=== PATIENT | female | born 1965 | race Caucasian/White ===

== ENCOUNTER 2016-05-13 11:18 | Emergency (ER) | payer MEDICAID ==
[~2016-05-13] VITALS: Ht 157.5 cm; Wt 63.5 kg
[~2016-05-13 11:18] MED LIST: ALBUPOW26 INH; PROMCRY PO; WARF1TAB; [UNRECOGNIZED DRUG - OTHER]
[2016-05-13 12:20] VITALS: BP 123/84
== END 2016-05-13 12:48 | disposition home or self-care (01) ==
LOC: ER 11:18
DX: S93.402A Sprain of unspecified ligament of left ankle, initial encounter (principal); S90.32XA Contusion of left foot, initial encounter; J44.9 Chronic obstructive pulmonary disease, unspecified; K21.9 Gastro-esophageal reflux disease without esophagitis; F17.210 Nicotine dependence, cigarettes, uncomplicated; F12.10 Cannabis abuse, uncomplicated; Z90.89 Acquired absence of other organs; Z98.51 Tubal ligation status; W18.40XA Slipping, tripping and stumbling without falling, unspecified, initial encounter; Y93.89 Activity, other specified; Y99.8 Other external cause status; Y92.009 Unspecified place in unspecified non-institutional (private) residence as the place of occurrence of the external cause
CPT/HCPCS: 73630

== ENCOUNTER 2016-06-30 19:55 | Inpatient (IN) | payer MEDICAID ==
[~2016-06-30] VITALS: Ht 157.5 cm; Wt 60.8 kg
[2016-06-30] MEDS ORDERED: LORazepam 2MG/ML-1ML VIAL IV ONE (21:00)
[2016-06-30] MEDS ORDERED: SODIUM CHLORIDE 0.9% 1,000 ML IV ONE ×2 (21:00)
[2016-06-30] MEDS ORDERED: THIAMINE INJ 100 MG, MULTIPLE VITAMIN 10 ML, FOLIC ACID 1 MG, MAGNESIUM SULF SDV 50% 8 ... IV ONE ×5 (21:00)
[2016-06-30 21:44] LABS: BUN/Creatinine Ratio 13.6; Calcium 7.7 mg/dL (8.5-10.1); Potassium 3.7 mmol/L (3.5-5.1)
[2016-06-30 21:47] LABS: Amylase 57 U/L (25-115)
[2016-06-30 21:49] LABS: Bilirubin, Total 0.4 mg/dL (0.2-1.0); Total Protein 6.3 g/dL (6.4-8.2)
[2016-06-30 22:04] LABS: Hematocrit 35.7 % (36.0-46.0); Mean Corpuscular Hemoglobin 30.8 pg (28.0-32.0); Mean Corpuscular Hgb Conc. 33.5 g/dL (32.0-36.0); Mean Corpuscular Volume 91.8 fL (80.0-100.0); Mean Platelet Volume 8.8 fL (7.4-10.4); Platelet Count (auto) 166 10^3/uL (140-450); Red Cell Distribution Width 14.5 % (11.6-16.0)
[2016-06-30 22:09] LABS: Metamyelocytes % 0; Myelocytes % 0; Promyelocytes % 0; Reactive Lymphocytes 0
[2016-06-30 22:14] LABS: Urine Bilirubin Negative (Negative); Urine Blood Negative /uL (Negative); Urine Color Yellow (Yellow); Urine Glucose Normal (Normal); Urine Ketone Negative (Negative); Urine Nitrite Negative (Negative); Urine RBC <1 /hpf (0 - 4); Urine Sperm PRESENT /hpf (None Seen); Urine Squamous Epithelial Cell FEW /hpf (<5); Urine Urobilinogen Normal (Negative)
[2016-06-30 22:33] LABS: Large Platelets FEW; Ovalocytes FEW; Platelet Estimate Adequa
[2016-07-01] VITALS (8 sets, daily range): BP systolic 114–147; BP diastolic 70–103
[2016-07-01] MEDS ORDERED: PANTOPRAZOLE SODIUM 40 MG/10 ML VIAL IV ONE (00:45)
[2016-07-01] MEDS ORDERED: MORPHINE SULF INJ 2 MG/ML SYRINGE 1ML IV PRN (00:45)
[2016-07-01] MEDS ORDERED: LORazepam 2MG/ML-1ML VIAL IV PRN (00:45)
[2016-07-01] MEDS ORDERED: BACLOFEN 10 MG TAB PO PRN (00:45)
[2016-07-01] MEDS ORDERED: ACETAMINOPHEN 325 MG TAB PO PRN (00:45)
[2016-07-01] MEDS ORDERED: ONDANSETRON HCL 4 MG/2 ML VIAL ONE (01:15)
[2016-07-01] MEDS: HYDROcodone-ACET 5/325MG TAB PO PRN ×5 (02:17→22:14)
[2016-07-01] MEDS: SODIUM CHLORIDE 0.9% 1,000 ML IV SCH ×2 (02:53→13:13)
[2016-07-01] MEDS ORDERED: ENOXAPARIN SOD 40 MG/0.4 ML SYRINGE SC SCH (10:00)
[2016-07-01] MEDS: PANTOPRAZOLE SODIUM 40 MG/10 ML VIAL IV SCH (10:51)
[2016-07-01] MEDS: FOLIC ACID 1 MG TAB PO SCH (10:52)
[2016-07-01] MEDS: THIAMINE HCL 100 MG TAB PO SCH (10:52)
[2016-07-01] MEDS: RIVAROXABAN 10 MG TAB PO SCH (10:56)
[2016-07-01] MEDS: ONDANSETRON HCL 4 MG/2 ML VIAL IV PRN ×2 (17:46→22:14)
[2016-07-01] MEDS: DIAZEPAM 5 MG TAB PO PRN (22:14)
[2016-07-02] MEDS ORDERED: diphenhdrAMINE HCL 25 MG CAP PO ONE (00:30)
[2016-07-02] MEDS: SODIUM CHLORIDE 0.9% 1,000 ML IV SCH (01:43)
[2016-07-02 05:00] VITALS: BP 138/93
[2016-07-02 05:31] LABS: Basophils # (auto) 0 uL; Basophils % (auto) 0.2 % (0.0-2.0); Eosinophils # (auto) 0.2 uL; Eosinophils % (auto) 2.9 % (0.0-7.0); Hematocrit 37.5 % (36.0-46.0); Hemoglobin 12.6 g/dL (12.2-16.2); Lymphocytes # (auto) 1.4 uL; Lymphocytes % (auto) 26.5 % (10.0-50.0); Mean Corpuscular Hemoglobin 30.8 pg (28.0-32.0); Mean Corpuscular Hgb Conc. 33.6 g/dL (32.0-36.0); Mean Corpuscular Volume 91.6 fL (80.0-100.0); Mean Platelet Volume 9.7 fL (7.4-10.4); Monocytes # (auto) 0.2 uL; Monocytes % (auto) 3.1 % (0.0-12.0); Neutrophils # (auto) 3.7 uL; Neutrophils % (auto) 67.3 % (37.0-80.0); Platelet Count (auto) 137 10^3/uL (140-450); Red Cell Distribution Width 14.4 % (11.6-16.0); SUSPECT VIEW TRANSMISSION; White Blood Cell 5.4 10^3/uL (4.4-10.8)
[2016-07-02 06:04] LABS: Albumin 3.5 g/dL (3.4-5.0); BUN/Creatinine Ratio 7.6; Bilirubin, Total 1.2 mg/dL (0.2-1.0); Calcium 8.4 mg/dL (8.5-10.1); Potassium 3.2 mmol/L (3.5-5.1); Total Protein 6.9 g/dL (6.4-8.2)
[2016-07-02 08:00] VITALS: BP 126/73
[2016-07-02 08:51] VITALS: BP 131/93
[2016-07-02] MEDS: RIVAROXABAN 10 MG TAB PO SCH (09:41)
[2016-07-02] MEDS: PANTOPRAZOLE SODIUM 40 MG/10 ML VIAL IV SCH (09:41)
[2016-07-02] MEDS: ONDANSETRON HCL 4 MG/2 ML VIAL IV PRN (09:41)
[2016-07-02] MEDS: FOLIC ACID 1 MG TAB PO SCH (09:41)
[2016-07-02] MEDS: DIAZEPAM 5 MG TAB PO PRN (09:42)
[2016-07-02] MEDS: THIAMINE HCL 100 MG TAB PO SCH (09:42)
[2016-07-02 10:38] VITALS: BP 126/73
== END 2016-07-02 11:25 | disposition home or self-care (01) | DRG 52 ==
LOC: EDBD 19:55 → ER 20:02 → OVERFLOW 20:03 → WEST WING 07-01 01:37
PROVIDERS: ADMIT Internal Medicine; ATTEND Internal Medicine
DX: G92 Toxic encephalopathy (principal); K86.1 Other chronic pancreatitis; J44.9 Chronic obstructive pulmonary disease, unspecified; E86.0 Dehydration; F12.90 Cannabis use, unspecified, uncomplicated; D64.9 Anemia, unspecified; F10.229 Alcohol dependence with intoxication, unspecified; K29.20 Alcoholic gastritis without bleeding; F17.210 Nicotine dependence, cigarettes, uncomplicated; K21.9 Gastro-esophageal reflux disease without esophagitis; F41.9 Anxiety disorder, unspecified; Z90.89 Acquired absence of other organs; Z98.51 Tubal ligation status; Z79.899 Other long term (current) drug therapy; Z71.41 Alcohol abuse counseling and surveillance of alcoholic
CPT/HCPCS: 36415; 80053; 80320; 81001; 82150; 83690; 85007; 85025; 85027; 96361; 96374; 96375; 99291; C9113; G0434; J2405; J7042

== ENCOUNTER 2016-08-23 20:37 | Emergency (ER) | payer MEDICAID ==
[~2016-08-23] VITALS: Ht 172.7 cm; Wt 68.0 kg
[2016-08-23 21:14] VITALS: BP_DIAS 76
[2016-08-23] MEDS ORDERED: diphenhdrAMINE HCL 50 MG/1 ML VL IM ONE (21:30)
== END 2016-08-23 21:53 | disposition home or self-care (01) ==
LOC: EDBD 20:37 → ER 20:42
DX: T60.91XA Toxic effect of unspecified pesticide, accidental (unintentional), initial encounter (principal); L29.9 Pruritus, unspecified; F17.210 Nicotine dependence, cigarettes, uncomplicated; F12.10 Cannabis abuse, uncomplicated; J44.9 Chronic obstructive pulmonary disease, unspecified; K21.9 Gastro-esophageal reflux disease without esophagitis; Y92.9 Unspecified place or not applicable; Z98.51 Tubal ligation status
CPT/HCPCS: 96372; 99283; J1200

== ENCOUNTER 2016-08-29 22:20 | Emergency (ER) | payer MEDICAID ==
[~2016-08-29] VITALS: Ht 160 cm; Wt 72.6 kg
[2016-08-29 22:20] VITALS: BP 118/81
== END 2016-08-30 01:50 | disposition left against medical advice (07) ==
LOC: EDBD 22:20 → ER 22:22
DX: R45.1 Restlessness and agitation (principal); Z53.21 Procedure and treatment not carried out due to patient leaving prior to being seen by health care provider

== ENCOUNTER 2017-08-21 08:43 | Emergency (ER) | payer MEDICAID ==
[~2017-08-21] VITALS: Ht 162.6 cm; Wt 54.4 kg
[2017-08-21 09:06] LABS: Basophils # (auto) 0.1 uL; Eosinophils # (auto) 0.1 uL; Lymphocytes # (auto) 3.8 uL; Nucleated Red Blood Cells % 0.1 %; Red Cell Distribution Width 14.2 % (11.8-14.3); White Blood Cell 8.5 10^3/uL (4.4-10.8)
[2017-08-21 09:07] LABS: Basophils % (auto) 1.3 % (0.0-2.0); Eosinophils % (auto) 1.3 % (0.0-7.0); Hematocrit 52.3 % (36.0-46.0); Hemoglobin 17.8 g/dL (12.2-16.2); Lymphocytes % (auto) 44.6 % (10.0-50.0); Mean Corpuscular Hemoglobin 31.6 pg (28.0-32.0); Mean Corpuscular Hgb Conc. 34.1 g/dL (32.0-36.0); Mean Corpuscular Volume 92.6 fL (80.0-100.0); Monocytes # (auto) 0.4 uL; Monocytes % (auto) 4.3 % (0.0-12.0); Neutrophils # (auto) 4.1 uL; Neutrophils % (auto) 48.5 % (37.0-80.0); Platelet Count (auto) 436 10^3/uL (140-450); Red Blood Cells 5.65 10^6/uL (4.0-5.20)
[2017-08-21] MEDS ORDERED: SODIUM CHLORIDE 0.9% 1,000 ML IV ONE ×4 (09:08→13:51)
[2017-08-21] MEDS ORDERED: chlordiazePOXIDE HCL 25 MG CAP PO ONE (09:15)
[2017-08-21] MEDS ORDERED: THIAMINE 100mg/ml INJ (200mg/2ml VIAL) IV ONE (09:15)
[2017-08-21] MEDS ORDERED: LORazepam 2MG/ML-1ML VIAL IV ONE (09:15)
[2017-08-21] MEDS ORDERED: diphenhdrAMINE HCL 50 MG/1 ML VL IV ONE (09:15)
[2017-08-21 09:24] LABS: Albumin 4.2 g/dL (3.4-5.0); BUN/Creatinine Ratio 20.4; Calcium 9.1 mg/dL (8.5-10.1); Potassium 4.2 mmol/L (3.5-5.1)
[2017-08-21 09:34] LABS: Bilirubin, Total 0.2 mg/dL (0.2-1.0)
[2017-08-21 10:49] LABS: Urine WBC None Seen /hpf (0 - 5)
[2017-08-21 11:19] LABS: Urine Bacteria NONE SEEN /hpf (None Seen); Urine Blood Negative /uL (Negative); Urine Specific Gravity 1.011 (1.001-1.035)
[2017-08-21 11:32] LABS: Amphetamine Screen, Urine POSITIVE (NEGATIVE); Barbiturate Scree,Urine NEGATIVE (NEGATIVE); Benzodiazephine Screen, Urine NEGATIVE (NEGATIVE); Cannabinoid Screen, Urine POSITIVE (NEGATIVE); Cocaine Screen, Urine NEGATIVE (NEGATIVE); Opiate Scree,Urine NEGATIVE (NEGATIVE); Phencyclidine Screen, Urine NEGATIVE (NEGATIVE)
[2017-08-21 14:15] VITALS: BP 135/86
== END 2017-08-21 15:21 | disposition home or self-care (01) ==
LOC: EDBD 08:43 → ER 08:43
DX: F10.129 Alcohol abuse with intoxication, unspecified (principal); E86.0 Dehydration; J44.9 Chronic obstructive pulmonary disease, unspecified; K21.9 Gastro-esophageal reflux disease without esophagitis; R41.82 Altered mental status, unspecified; F17.210 Nicotine dependence, cigarettes, uncomplicated; Z86.718 Personal history of other venous thrombosis and embolism; Z90.5 Acquired absence of kidney; Z79.01 Long term (current) use of anticoagulants
CPT/HCPCS: 36415; 51702; 80053; 80307; 80320; 81001; 84484; 85025; 93005; 94761; 96361; 96374; 96375; 99285; J1200; J2060; J3411; J7030

== ENCOUNTER 2017-08-24 16:17 | Emergency (ER) | payer MEDICAID ==
[~2017-08-24] VITALS: Ht 167.6 cm; Wt 54.4 kg
[2017-08-24] MEDS ORDERED: SODIUM CHLORIDE 0.9% 1,000 ML IVB ONE (16:32)
[2017-08-24] MEDS ORDERED: LORazepam 2MG/ML-1ML VIAL IV ONE (16:45)
[2017-08-24 17:28] LABS: Basophils # (auto) 0.1 uL; Basophils % (auto) 1.9 % (0.0-2.0); Eosinophils # (auto) 0 uL; Eosinophils % (auto) 0.8 % (0.0-7.0); Hematocrit 43.4 % (36.0-46.0); Hemoglobin 14.6 g/dL (12.2-16.2); Lymphocytes # (auto) 2.4 uL; Lymphocytes % (auto) 51.8 % (10.0-50.0); Mean Corpuscular Hemoglobin 31.1 pg (28.0-32.0); Mean Corpuscular Hgb Conc. 33.7 g/dL (32.0-36.0); Mean Corpuscular Volume 92.2 fL (80.0-100.0); Monocytes # (auto) 0.4 uL; Monocytes % (auto) 8.9 % (0.0-12.0); Neutrophils # (auto) 1.7 uL; Neutrophils % (auto) 36.6 % (37.0-80.0); Nucleated Red Blood Cells % 0.1 %; Platelet Count (auto) 285 10^3/uL (140-450); Red Cell Distribution Width 13.8 % (11.8-14.3); White Blood Cell 4.6 10^3/uL (4.4-10.8)
[2017-08-24 17:42] LABS: Albumin 3.7 g/dL (3.4-5.0); BUN/Creatinine Ratio 18.3; Bilirubin, Total 0.2 mg/dL (0.2-1.0); Calcium 8.5 mg/dL (8.5-10.1); Potassium 4.1 mmol/L (3.5-5.1); Total Protein 7.4 g/dL (6.4-8.2)
[2017-08-24 19:59] VITALS: BP 141/89
== END 2017-08-24 20:38 | disposition home or self-care (01) ==
LOC: EDBD 16:17 → ER 16:24
DX: F10.10 Alcohol abuse, uncomplicated (principal); J44.9 Chronic obstructive pulmonary disease, unspecified; K21.9 Gastro-esophageal reflux disease without esophagitis; F17.210 Nicotine dependence, cigarettes, uncomplicated; Z86.718 Personal history of other venous thrombosis and embolism; Z79.01 Long term (current) use of anticoagulants; Z79.899 Other long term (current) drug therapy
CPT/HCPCS: 36415; 80053; 80320; 85025; 94761; 96374; 99284; J2060; J7030

== ENCOUNTER 2018-04-15 09:39 | Emergency (ER) | payer MEDICAID ==
[~2018-04-15] VITALS: Ht 154.9 cm; Wt 54.4 kg
[2018-04-15] MEDS ORDERED: SODIUM CHLORIDE 0.9% 1,000 ML IV ONE ×4 (10:19→10:30)
[2018-04-15] MEDS ORDERED: cloNIDine HCL 0.1 MG TAB PO ONE (10:30)
[2018-04-15] MEDS ORDERED: LORazepam 2MG/ML-1ML VIAL IV ONE ×2 (10:30)
[2018-04-15 10:32] LABS: Basophils # (auto) 0.1 uL; Basophils % (auto) 0.8 % (0.0-2.0); Eosinophils # (auto) 0.2 uL; Eosinophils % (auto) 2.6 % (0.0-7.0); Hematocrit 37.1 % (36.0-46.0); Hemoglobin 12.8 g/dL (12.2-16.2); Lymphocytes # (auto) 1.8 uL; Lymphocytes % (auto) 26.5 % (10.0-50.0); Mean Corpuscular Hemoglobin 32.2 pg (28.0-32.0); Mean Corpuscular Hgb Conc. 34.6 g/dL (32.0-36.0); Monocytes # (auto) 0.5 uL; Monocytes % (auto) 8.1 % (0.0-12.0); Neutrophils # (auto) 4.1 uL; Platelet Count (auto) 279 10^3/uL (140-450); Red Blood Cells 3.99 10^6/uL (4.0-5.20); Red Cell Distribution Width 14.5 % (11.8-14.3); White Blood Cell 6.7 10^3/uL (4.4-10.8)
[2018-04-15 10:50] LABS: Alanine Aminotransferase 32 U/L (13-56); Albumin 3.9 g/dL (3.4-5.0); Anion Gap 8 (5-15); Aspartate Aminotransferase 33 U/L (15-37); Blood Urea Nitrogen 39 mg/dL (7-18); Calcium 8.5 mg/dL (8.5-10.1); Carbon Dioxide 24 mmol/L (21-32); Chloride 102 mmol/L (98-107); Glucose 113 mg/dL (74-106); Potassium 3.5 mmol/L (3.5-5.1); Sodium 134 mmol/L (136-145)
[2018-04-15 10:55] LABS: Alkaline Phosphatase 114 U/L (45-117); Bilirubin, Total 0.9 mg/dL (0.2-1.0); GFR African American 57 mL/min; GFR Non-African American 47 mL/min; Total Protein 7.6 g/dL (6.4-8.2)
[2018-04-15 10:56] LABS: INR 0.84 (0.9-1.15); Partial Thromboplastin Time 24.4 sec (23.78-33.04); Prothrombin Time 9.1 sec (9.27-12.13)
[2018-04-15 15:06] VITALS: BP 106/77
== END 2018-04-15 15:18 | disposition home or self-care (01) ==
LOC: EDBD 09:39 → ER 09:47
DX: F41.9 Anxiety disorder, unspecified (principal); E86.0 Dehydration; J44.9 Chronic obstructive pulmonary disease, unspecified; K21.9 Gastro-esophageal reflux disease without esophagitis; F12.10 Cannabis abuse, uncomplicated; F15.10 Other stimulant abuse, uncomplicated; F17.210 Nicotine dependence, cigarettes, uncomplicated; Z98.51 Tubal ligation status
CPT/HCPCS: 36415; 71045; 80053; 84484; 85025; 85610; 85730; 96361; 96374; 99284; J2060; J7030

== ENCOUNTER 2018-05-14 13:16 | Emergency (ER) | payer MEDICAID ==
[~2018-05-14] VITALS: Ht 154.9 cm; Wt 54.4 kg
[2018-05-14 13:39] VITALS: BP 134/88
[2018-05-14] MEDS ORDERED: KETOROLAC TROMETH 60MG/2ML VIAL IM ONE (14:30)
[2018-05-14] MEDS ORDERED: cefTRIAXone SOD 1,000 MG VL IM ONE (14:30)
== END 2018-05-14 14:58 | disposition home or self-care (01) ==
LOC: ER 13:16
DX: S39.012A Strain of muscle, fascia and tendon of lower back, initial encounter (principal); J03.90 Acute tonsillitis, unspecified; J44.9 Chronic obstructive pulmonary disease, unspecified; K21.9 Gastro-esophageal reflux disease without esophagitis; F17.210 Nicotine dependence, cigarettes, uncomplicated; F12.90 Cannabis use, unspecified, uncomplicated; F15.90 Other stimulant use, unspecified, uncomplicated; Z79.899 Other long term (current) drug therapy; Z79.01 Long term (current) use of anticoagulants; Z98.51 Tubal ligation status; X50.0XXA Overexertion from strenuous movement or load, initial encounter; Y93.89 Activity, other specified; Y99.8 Other external cause status; Y92.89 Other specified places as the place of occurrence of the external cause
CPT/HCPCS: 96372; 99283; J0696; J1885

== ENCOUNTER 2019-03-05 20:27 | Emergency (ER) | payer MEDICAID ==
[~2019-03-05] VITALS: Ht 154.9 cm; Wt 68.0 kg
[2019-03-05] MEDS ORDERED: ONDANSETRON ODT 4 MG TAB PO ONE (23:00)
[2019-03-06 00:24] LABS: Eosinophils # (auto) 0 uL; Lymphocytes # (auto) 2.3 uL; Monocytes # (auto) 0.4 uL; Nucleated Red Blood Cells % 0.1 %
[2019-03-06 00:26] LABS: Basophils # (auto) 0.1 uL; Basophils % (auto) 0.6 % (0.0-2.0); Hematocrit 53.4 % (36.0-46.0); Hemoglobin 18.1 g/dL (12.2-16.2); Lymphocytes % (auto) 21.9 % (10.0-50.0); Mean Corpuscular Hemoglobin 31.2 pg (28.0-32.0); Mean Corpuscular Hgb Conc. 33.8 g/dL (32.0-36.0); Mean Corpuscular Volume 92.2 fL (80.0-100.0); Monocytes % (auto) 3.7 % (0.0-12.0); Neutrophils # (auto) 7.7 uL; Neutrophils % (auto) 73.8 % (37.0-80.0); Platelet Count (auto) 393 10^3/uL (140-450); Red Cell Distribution Width 13.9 % (11.8-14.3); White Blood Cell 10.4 10^3/uL (4.4-10.8)
[2019-03-06 00:45] LABS: Alanine Aminotransferase 29 U/L (13-56); Albumin 3.9 g/dL (3.4-5.0); Anion Gap 17 (5-15); BUN/Creatinine Ratio 21.9; Blood Urea Nitrogen 28 mg/dL (7-18); Calcium 9.5 mg/dL (8.5-10.1); Carbon Dioxide 21 mmol/L (21-32); Chloride 93 mmol/L (98-107); GFR African American 56 mL/min; GFR Non-African American 46 mL/min; Glucose 126 mg/dL (74-106); Potassium 4.4 mmol/L (3.5-5.1); Sodium 131 mmol/L (136-145)
[2019-03-06 00:52] LABS: Alkaline Phosphatase 111 U/L (45-117); Aspartate Aminotransferase 34 U/L (15-37); Bilirubin, Total 0.5 mg/dL (0.2-1.0); Total Protein 8.4 g/dL (6.4-8.2)
[2019-03-06 01:58] LABS: Urine Bacteria NONE SEEN /hpf (None Seen); Urine Blood TRACE /uL (Negative); Urine Hyaline Cast MANY /lpf (0 - 2); Urine Mucus FEW (None Seen); Urine Specific Gravity 1.027 (1.001-1.035); Urine WBC 3 /hpf (0 - 5)
[2019-03-06 02:05] LABS: Amphetamine Screen, Urine POSITIVE (NEGATIVE); Barbiturate Scree,Urine NEGATIVE (NEGATIVE); Benzodiazephine Screen, Urine NEGATIVE (NEGATIVE); Cannabinoid Screen, Urine POSITIVE (NEGATIVE); Cocaine Screen, Urine NEGATIVE (NEGATIVE); Opiate Scree,Urine NEGATIVE (NEGATIVE); Phencyclidine Screen, Urine NEGATIVE (NEGATIVE)
[2019-03-06] MEDS ORDERED: ONDANSETRON HCL 4 MG/2 ML VIAL IV ONE (02:45)
[2019-03-06] MEDS ORDERED: SODIUM CHLORIDE 0.9% 1,000 ML IV ONE (02:45)
[2019-03-06 04:02] VITALS: BP 141/76
== END 2019-03-06 04:44 | disposition home or self-care (01) ==
LOC: EDBD 20:27 → ER 20:28
DX: A08.4 Viral intestinal infection, unspecified (principal); F19.10 Other psychoactive substance abuse, uncomplicated; J44.9 Chronic obstructive pulmonary disease, unspecified; K21.9 Gastro-esophageal reflux disease without esophagitis; F17.210 Nicotine dependence, cigarettes, uncomplicated
CPT/HCPCS: 36415; 80053; 80307; 81001; 84484; 85025; 96361; 96374; 99284; J2405; Q0162

== ENCOUNTER 2019-07-03 01:56 | Emergency (ER) | payer MEDICAID ==
[~2019-07-03] VITALS: Ht 154.9 cm; Wt 68.0 kg
[2019-07-03] MEDS ORDERED: HALOPERIDOL LACTATE 5 MG/ML INJ VIAL IM ONE (02:30)
[2019-07-03] MEDS ORDERED: LORazepam 2MG/ML-1ML VIAL IV ONE (02:30)
[2019-07-03] MEDS ORDERED: diphenhdrAMINE HCL 50 MG/1 ML VL IV ONE (02:30)
[2019-07-03 02:58] LABS: Basophils # (auto) 0.1 10 ^3/uL (0-0.2); Basophils % (auto) 1.8 % (0.0-2.0); Eosinophils # (auto) 0.4 10 ^3/uL (0-0.8); Eosinophils % (auto) 6.8 % (0.0-7.0); Hematocrit 42.8 % (36.0-46.0); Hemoglobin 14.2 g/dL (12.2-16.2); Lymphocytes # (auto) 3.2 10 ^3/uL (0.4-5.4); Mean Corpuscular Hemoglobin 30.8 pg (28.0-32.0); Mean Corpuscular Hgb Conc. 33.2 g/dL (32.0-36.0); Mean Corpuscular Volume 92.8 fL (80.0-100.0); Monocytes # (auto) 0.4 10 ^3/uL (0-1.3); Monocytes % (auto) 6.8 % (0.0-12.0); Neutrophils # (auto) 1.7 10 ^3/uL (1.6-8.6); Neutrophils % (auto) 29.1 % (37.0-80.0); Nucleated Red Blood Cells % 0.1 %; Platelet Count (auto) 332 10^3/uL (140-450); Red Blood Cells 4.61 10^6/uL (4.0-5.20); Red Cell Distribution Width 14.2 % (11.8-14.3); White Blood Cell 5.7 10^3/uL (4.4-10.8)
[2019-07-03 03:02] LABS: Urine Bacteria NONE SEEN /hpf (None Seen); Urine Blood Negative /uL (Negative); Urine Specific Gravity 1.007 (1.001-1.035); Urine WBC 1 /hpf (0 - 5)
[2019-07-03 03:11] LABS: Lymphocytes % (auto) 55.5 % (10.0-50.0)
[2019-07-03 03:12] LABS: Albumin 3.7 g/dL (3.4-5.0); BUN/Creatinine Ratio 19.8; Calcium 8.9 mg/dL (8.5-10.1); Potassium 4.2 mmol/L (3.5-5.1); Salicylate < 1.7 mg/dL (2.8-20.0)
[2019-07-03 03:14] LABS: Amphetamine Screen, Urine POSITIVE (NEGATIVE); Barbiturate Scree,Urine NEGATIVE (NEGATIVE); Benzodiazephine Screen, Urine NEGATIVE (NEGATIVE); Cannabinoid Screen, Urine NEGATIVE (NEGATIVE); Cocaine Screen, Urine NEGATIVE (NEGATIVE); Opiate Scree,Urine NEGATIVE (NEGATIVE); Phencyclidine Screen, Urine NEGATIVE (NEGATIVE)
[2019-07-03 03:14] LABS: Acetaminophen < 2.0 ug/mL (10-30)
[2019-07-03] MEDS ORDERED: SODIUM CHLORIDE 0.9% 1,000 ML IV ONE ×3 (03:15→06:00)
[2019-07-03 03:23] LABS: Bilirubin, Total 0.2 mg/dL (0.2-1.0)
[2019-07-03] MEDS ORDERED: FOLIC ACID 1 MG, MULTIPLE VITAMIN 10 ML, MAGNESIUM SULF SDV 50% 8 MEQ, THIAMINE INJ 100... INJ SCH ×5 (12:00)
[2019-07-03 16:15] VITALS: BP 106/68
== END 2019-07-03 17:09 | disposition still patient (30) ==
LOC: EDBD 01:56 → ER 01:58
DX: F10.129 Alcohol abuse with intoxication, unspecified (principal); F19.10 Other psychoactive substance abuse, uncomplicated; R41.82 Altered mental status, unspecified; J44.9 Chronic obstructive pulmonary disease, unspecified; K21.9 Gastro-esophageal reflux disease without esophagitis; F17.210 Nicotine dependence, cigarettes, uncomplicated; Y90.9 Presence of alcohol in blood, level not specified
CPT/HCPCS: 36415; 80053; 80307; 80320; 80329; 81001; 85025; 93005; 96361; 96365; 96366; 96372; 96375; 99284; J1200; J1630; J2060; J3411; J3475; J7030

== ENCOUNTER 2019-08-17 19:08 | Emergency (ER) | payer MEDICAID ==
[~2019-08-17] VITALS: Ht 154.9 cm; Wt 56.7 kg
[2019-08-17] MEDS ORDERED: ACETAMINOPHEN 500 MG TAB PO ONE (20:15)
[2019-08-17 21:55] VITALS: BP 155/108
== END 2019-08-17 21:44 | disposition home or self-care (01) ==
LOC: ER 19:09
DX: S61.214A Laceration without foreign body of right ring finger without damage to nail, initial encounter (principal); W26.8XXA Contact with other sharp object(s), not elsewhere classified, initial encounter; Y93.9 Activity, unspecified; Y92.89 Other specified places as the place of occurrence of the external cause; Y99.8 Other external cause status
CPT/HCPCS: 12002; 73130

== ENCOUNTER 2019-08-22 16:43 | Emergency (ER) | payer MEDICAID ==
[~2019-08-22] VITALS: Ht 154.9 cm; Wt 54.4 kg
[2019-08-22 16:55] VITALS: BP 118/68
[2019-08-22] MEDS ORDERED: cefTRIAXone SOD 1,000 MG VL IM ONE (19:30)
== END 2019-08-22 21:27 | disposition left against medical advice (07) ==
LOC: ER 16:43 → EDBD 16:43 → ER 21:27
DX: L03.011 Cellulitis of right finger (principal); J44.9 Chronic obstructive pulmonary disease, unspecified; K21.9 Gastro-esophageal reflux disease without esophagitis; F17.210 Nicotine dependence, cigarettes, uncomplicated

== ENCOUNTER 2020-01-30 21:37 | Emergency (ER) | payer MEDICAID ==
[~2020-01-30] VITALS: Ht 157.5 cm; Wt 49.9 kg
[2020-01-30 22:46] LABS: Basophils # (auto) 0 10 ^3/uL (0-0.2); Basophils % (auto) 0.3 % (0.0-2.0); Eosinophils # (auto) 0 10 ^3/uL (0-0.8); Eosinophils % (auto) 0.2 % (0.0-7.0); Hemoglobin 15.8 g/dL (12.2-16.2); Lymphocytes # (auto) 2.8 10 ^3/uL (0.4-5.4); Mean Corpuscular Hemoglobin 31.1 pg (28.0-32.0); Mean Corpuscular Hgb Conc. 33.6 g/dL (32.0-36.0); Mean Corpuscular Volume 92.5 fL (80.0-100.0); Monocytes # (auto) 0.7 10 ^3/uL (0-1.3); Monocytes % (auto) 6.4 % (0.0-12.0); Neutrophils # (auto) 7.1 10 ^3/uL (1.6-8.6); Neutrophils % (auto) 67.1 % (37.0-80.0); Nucleated Red Blood Cells % 0.1 %; Platelet Count (auto) 379 10^3/uL (140-450); Red Blood Cells 5.08 10^6/uL (4.0-5.20); Red Cell Distribution Width 13.7 % (11.8-14.3); White Blood Cell 10.6 10^3/uL (4.4-10.8)
[2020-01-30 23:00] VITALS: BP 98/60
[2020-01-30 23:04] LABS: Albumin 3.5 g/dL (3.4-5.0); Calcium 8.3 mg/dL (8.5-10.1); Potassium 3.1 mmol/L (3.5-5.1)
[2020-01-30 23:09] LABS: BUN/Creatinine Ratio 16.6; Bilirubin, Total 0.4 mg/dL (0.2-1.0); Total Protein 7.1 g/dL (6.4-8.2)
== END 2020-01-31 00:20 | disposition left against medical advice (07) ==
LOC: ER 21:37 → EDBD 21:37 → ER 01-31 00:20
DX: F10.10 Alcohol abuse, uncomplicated (principal); R51.9 Headache, unspecified; Z53.21 Procedure and treatment not carried out due to patient leaving prior to being seen by health care provider
CPT/HCPCS: 36415; 70450; 72125; 80053; 80320; 85025

== ENCOUNTER 2020-07-13 09:18 | Inpatient (IN) | payer MEDICAID ==
[~2020-07-13] VITALS: Ht 154.9 cm; Wt 49.0 kg
[2020-07-13] MEDS ORDERED: SODIUM CHLORIDE 0.9% 1,000 ML IV ONE ×3 (09:30→12:00)
[2020-07-13] MEDS ORDERED: LORazepam 2MG/ML-1ML VIAL IV ONE (09:30)
[2020-07-13 10:58] LABS: Albumin 3.6 g/dL (3.4-5.0); Anion Gap 12 (5-15); Blood Urea Nitrogen 19 mg/dL (7-18); Calcium 9.2 mg/dL (8.5-10.1); Carbon Dioxide 20 mmol/L (21-32); Chloride 108 mmol/L (98-107); Glucose 85 mg/dL (74-106); Magnesium 2.1 mg/dL (1.6-2.6); Potassium 5.3 mmol/L (3.5-5.1); Sodium 140 mmol/L (136-145)
[2020-07-13 11:03] LABS: Alanine Aminotransferase 25 U/L (13-56); Alkaline Phosphatase 108 U/L (45-117); Aspartate Aminotransferase 45 U/L (15-37); BUN/Creatinine Ratio 19.8; Bilirubin, Total 0.4 mg/dL (0.2-1.0); GFR African American 78 mL/min; GFR Non-African American 64 mL/min; Total Protein 7.8 g/dL (6.4-8.2)
[2020-07-13 11:08] LABS: Basophils # (auto) 0.1 10 ^3/uL (0-0.2); Basophils % (auto) 0.6 % (0.0-2.0); Eosinophils # (auto) 0.2 10 ^3/uL (0-0.8); Eosinophils % (auto) 1.7 % (0.0-7.0); Hematocrit 44.3 % (36.0-46.0); Hemoglobin 15.1 g/dL (12.2-16.2); Lymphocytes # (auto) 2.2 10 ^3/uL (0.4-5.4); Lymphocytes % (auto) 21.8 % (10.0-50.0); Mean Corpuscular Hemoglobin 31.2 pg (28.0-32.0); Mean Corpuscular Hgb Conc. 34.1 g/dL (32.0-36.0); Mean Corpuscular Volume 91.4 fL (80.0-100.0); Monocytes # (auto) 0.6 10 ^3/uL (0-1.3); Monocytes % (auto) 5.8 % (0.0-12.0); Neutrophils % (auto) 70.1 % (37.0-80.0); Platelet Count (auto) 387 10^3/uL (140-450); Red Blood Cells 4.85 10^6/uL (4.0-5.20)
[2020-07-13 11:29] LABS: Amphetamine Screen, Urine POSITIVE (NEGATIVE); Barbiturate Scree,Urine NEGATIVE (NEGATIVE); Benzodiazephine Screen, Urine NEGATIVE (NEGATIVE); Cannabinoid Screen, Urine POSITIVE (NEGATIVE); Cocaine Screen, Urine NEGATIVE (NEGATIVE)
[2020-07-13 11:37] LABS: Opiate Scree,Urine NEGATIVE (NEGATIVE); Phencyclidine Screen, Urine NEGATIVE (NEGATIVE)
[2020-07-13] MEDS ORDERED: ALBUTEROL SULF 2.5 MG/0.5ML(0.5%) NEB SOLN NEB ONE ×2 (12:00→15:00)
[2020-07-13] MEDS ORDERED: SODIUM ZIRCONIUM CYCL 10 GM PAK PO ONE (12:00)
[2020-07-13] MEDS ORDERED: InsuLIN REG 1unit/0.01ml Soln (100units/ml) IV ONE (12:00)
[2020-07-13] MEDS ORDERED: DEXTROSE (50%) 50ML SYRG IV ONE (12:00)
[2020-07-13] MEDS ORDERED: FUROSEMIDE 20 MG/2 ML VIAL IV ONE (12:00)
[2020-07-13] MEDS ORDERED: CALCIUM GLUC 1,000mg/50ml-NS 50 ML IV ONE (12:00)
[2020-07-13] MEDS ORDERED: ONDANSETRON HCL 4 MG/2 ML VIAL ONE (12:54)
[2020-07-13] MEDS ORDERED: ONDANSETRON HCL 4 MG/2 ML VIAL IV ONE (13:00)
[2020-07-13] MEDS ORDERED: MORPHINE SULF INJ 2 MG/ML SYRINGE 1ML IV PRN ×3 (13:30→14:45)
[2020-07-13] MEDS ORDERED: NITROGLYCERIN 0.4 MG SL TAB SL PRN ×2 (13:30→14:45)
[2020-07-13] MEDS ORDERED: LORazepam 0.5 MG TAB PO PRN (14:45)
[2020-07-13] MEDS ORDERED: DOCUSATE SOD 100 MG CAP PO PRN (14:45)
[2020-07-13] MEDS ORDERED: INFLUENZA QUAD 2020-2021 0.5 ML SYRG IM ONE (14:45)
[2020-07-13] MEDS: chlordiazePOXIDE HCL 25 MG CAP PO SCH ×2 (14:45→22:41)
[2020-07-13] MEDS ORDERED: HYDROcodone-ACET 5/325MG TAB PO PRN (14:45)
[2020-07-13] MEDS ORDERED: PNEUMOCOCCAL VACC POLYS 25 MCG/0.5 ML VIAL IM ONE (14:45)
[2020-07-13] MEDS ORDERED: ALUM & MAG HYDROX-SIMETH LIQ(MAALOX) 30 ML PO PRN (14:45)
[2020-07-13] MEDS ORDERED: METOPROLOL TARTRATE 25 MG TAB PO ONE (14:45)
[2020-07-13] MEDS ORDERED: ACETAMINOPHEN 325 MG TAB PO PRN (14:45)
[2020-07-13] MEDS ORDERED: ONDANSETRON HCL 4 MG/2 ML VIAL IV PRN (14:45)
[2020-07-13] MEDS ORDERED: ATORVASTATIN 20 MG TAB PO ONE (14:45)
[2020-07-13] MEDS: ASPirin 81 mg TAB PO SCH (14:50)
[2020-07-13] MEDS ORDERED: hydrALAZINE HCL 20 MG/ML VL IV PRN (15:00)
[2020-07-13] MEDS ORDERED: CLINDAMYCIN 600MG IV 50 ML IV ONE (15:00)
[2020-07-13] MEDS ORDERED: ENOXAPARIN SOD 100 MG/1 ML SYRINGE SC ONE (15:00)
[2020-07-13] MEDS ORDERED: ALBUTEROL SULF 2.5 MG/0.5ML(0.5%) NEB SOLN NEB PRN (15:00)
[2020-07-13] MEDS ORDERED: cefTRIAXone 1GM/50ML D5W 50 ML IV ONE (15:00)
[2020-07-13] MEDS ORDERED: methylPREDNISolone SOD SUCC 40 MG/ML VL IV ONE (15:00)
[2020-07-13] MEDS ORDERED: IPRATROPIUM BROM 0.5 MG/2.5ML INH SOL NEB ONE (15:00)
[2020-07-13 15:54] LABS: INR 0.94 (0.9-1.15); Partial Thromboplastin Time 23.8 sec (23.0-31.2)
[2020-07-13 16:37] VITALS: BP 122/83
[2020-07-13 16:37] LABS: Urine Bacteria NONE SEEN /hpf (None Seen); Urine Blood Negative /uL (Negative); Urine Specific Gravity 1.017 (1.001-1.035); Urine WBC 1 /hpf (0 - 5)
[2020-07-13 16:41] LABS: Potassium 3.2 mmol/L (3.5-5.1)
[2020-07-13 16:52] LABS: Cholesterol 190 mg/dL (< 200)
[2020-07-13 16:54] LABS: HDL Cholesterol 86 mg/dL (40-59); LDL Cholesterol 75 mg/dL (< 100); Triglycerides 235 mg/dL (< 150)
[2020-07-13] MEDS ORDERED: IPRATROPIUM BROM 0.5 MG/2.5ML INH SOL NEB SCH (18:00)
[2020-07-13] MEDS ORDERED: IPRATROPIUM BROM 0.5 MG/2.5ML INH SOL NEB PRN (19:00)
[2020-07-13 21:25] VITALS: BP 153/101
[2020-07-13] MEDS: methylPREDNISolone SOD SUCC 40 MG/ML VL IV SCH (22:10)
[2020-07-13] MEDS: CLINDAMYCIN 600MG IV 50 ML IV SCH (22:10)
[2020-07-13] MEDS: CARVEDILOL 3.125 MG TAB PO SCH (22:12)
[2020-07-13] MEDS: ENOXAPARIN SOD 100 MG/1 ML SYRINGE SC SCH (22:12)
[2020-07-13 23:29] VITALS: BP 128/85
[2020-07-14 05:56] VITALS: BP 136/92
[2020-07-14] MEDS: CLINDAMYCIN 600MG IV 50 ML IV SCH (06:03)
[2020-07-14] MEDS: methylPREDNISolone SOD SUCC 40 MG/ML VL IV SCH (06:04)
[2020-07-14] MEDS: chlordiazePOXIDE HCL 25 MG CAP PO SCH (06:41)
[2020-07-14 08:00] VITALS: BP 128/85
[2020-07-14 08:08] LABS: Basophils # (auto) 0 10 ^3/uL (0-0.2); Basophils % (auto) 0.4 % (0.0-2.0); Eosinophils # (auto) 0 10 ^3/uL (0-0.8); Hematocrit 39.9 % (36.0-46.0); Hemoglobin 13.5 g/dL (12.2-16.2); Lymphocytes # (auto) 0.7 10 ^3/uL (0.4-5.4); Lymphocytes % (auto) 14.5 % (10.0-50.0); Mean Corpuscular Hemoglobin 30.7 pg (28.0-32.0); Mean Corpuscular Hgb Conc. 33.7 g/dL (32.0-36.0); Monocytes # (auto) 0.2 10 ^3/uL (0-1.3); Neutrophils # (auto) 4.2 10 ^3/uL (1.6-8.6); Neutrophils % (auto) 82.1 % (37.0-80.0); Nucleated Red Blood Cells % 0.2 %; Platelet Count (auto) 342 10^3/uL (140-450); Red Blood Cells 4.39 10^6/uL (4.0-5.20); Red Cell Distribution Width 14.8 % (11.8-14.3); White Blood Cell 5.1 10^3/uL (4.4-10.8)
[2020-07-14 08:17] LABS: INR 0.96 (0.9-1.15); Partial Thromboplastin Time 34.8 sec (23.0-31.2)
[2020-07-14 08:38] LABS: Chloride 101 mmol/L (98-107); Potassium 3.9 mmol/L (3.5-5.1); Sodium 135 mmol/L (136-145)
[2020-07-14 08:56] VITALS: BP 134/95
[2020-07-14] MEDS ORDERED: cefTRIAXone 1GM/50ML D5W 50 ML IV SCH (09:00)
[2020-07-14 09:08] LABS: Alanine Aminotransferase 20 U/L (13-56); Albumin 3.5 g/dL (3.4-5.0); Alkaline Phosphatase 100 U/L (45-117); Anion Gap 12 (5-15); Aspartate Aminotransferase 23 U/L (15-37); BUN/Creatinine Ratio 23.5; Bilirubin, Total 0.5 mg/dL (0.2-1.0); Blood Urea Nitrogen 19 mg/dL (7-18); Calcium 8.3 mg/dL (8.5-10.1); Carbon Dioxide 22 mmol/L (21-32); GFR African American 94 mL/min; GFR Non-African American 78 mL/min; Glucose 124 mg/dL (74-106); Magnesium 1.7 mg/dL (1.6-2.6); Phosphorus 3.3 mg/dL (2.5-4.90)
[2020-07-14] MEDS: ASPirin 81 mg TAB PO SCH (09:15)
[2020-07-14] MEDS: CARVEDILOL 3.125 MG TAB PO SCH (09:16)
[2020-07-14] MEDS: ENOXAPARIN SOD 100 MG/1 ML SYRINGE SC SCH (09:18)
[2020-07-14] MEDS ORDERED: LISINOPRIL 20 MG TAB PO SCH (10:00)
[2020-07-14] MEDS ORDERED: chlordiazePOXIDE HCL 25 MG CAP PO SCH (10:00)
[2020-07-14] MEDS ORDERED: ATORVASTATIN 20 MG TAB PO SCH (22:00)
[2020-07-15] MEDS ORDERED: chlordiazePOXIDE HCL 25 MG CAP PO SCH (10:00)
[2020-07-16] MEDS ORDERED: chlordiazePOXIDE HCL 25 MG CAP PO SCH (07:00)
== END 2020-07-14 10:45 | disposition left against medical advice (07) | DRG 203 ==
LOC: EDBD 09:18 → ER 09:18 → TELE 13:21 → TELE-CENTR 20:37
PROVIDERS: ADMIT Hospitalist; ATTEND Hospitalist
DX: R07.89 Other chest pain (principal); N17.0 Acute kidney failure with tubular necrosis; J96.20 Acute and chronic respiratory failure, unspecified whether with hypoxia or hypercapnia; J69.0 Pneumonitis due to inhalation of food and vomit; G92 Toxic encephalopathy; E87.1 Hypo-osmolality and hyponatremia; R65.10 Systemic inflammatory response syndrome (SIRS) of non-infectious origin without acute organ dysfunction; Z20.822 Contact with and (suspected) exposure to COVID-19; E87.5 Hyperkalemia; I13.0 Hypertensive heart and chronic kidney disease with heart failure and stage 1 through stage 4 chronic kidney disease, or unspecified chronic kidney disease; I50.9 Heart failure, unspecified; F15.10 Other stimulant abuse, uncomplicated; F17.210 Nicotine dependence, cigarettes, uncomplicated; F10.139 Alcohol abuse with withdrawal, unspecified; Y90.9 Presence of alcohol in blood, level not specified; K21.9 Gastro-esophageal reflux disease without esophagitis; M62.82 Rhabdomyolysis; F41.9 Anxiety disorder, unspecified; F10.129 Alcohol abuse with intoxication, unspecified; I16.1 Hypertensive emergency; J44.1 Chronic obstructive pulmonary disease with (acute) exacerbation; N18.9 Chronic kidney disease, unspecified; Z79.01 Long term (current) use of anticoagulants
CPT/HCPCS: 36415; 36600; 70450; 71045; 71046; 80053; 80061; 80307; 81001; 82306; 82805; 82962; 83036; 83735; 83880; 84100; 84132; 84443; 84484; 85025; 85610; 85730; 87040; 87086; 87426; 93005; 94640; 96365; 96367; 96368; 96372; 96375; 99291; G0378; J0696; J1815; J2405; J3490

== ENCOUNTER 2020-08-22 14:47 | Emergency (ER) | payer MEDICAID ==
[~2020-08-22] VITALS: Ht 167.6 cm; Wt 59.0 kg
[2020-08-22] MEDS ORDERED: THIAMINE 100mg/ml INJ (200mg/2ml VIAL) IV ONE (15:00)
[2020-08-22] MEDS ORDERED: SODIUM CHLORIDE 0.9% 2,000 ML IV ONE (15:00)
[2020-08-22] MEDS ORDERED: ONDANSETRON HCL 4 MG/2 ML VIAL ONE (15:23)
[2020-08-22] MEDS ORDERED: ONDANSETRON HCL 4 MG/2 ML VIAL IV ONE (15:30)
[2020-08-22 15:43] LABS: Basophils # (auto) 0 10 ^3/uL (0-0.2); Basophils % (auto) 0.2 % (0.0-2.0); Eosinophils # (auto) 0.1 10 ^3/uL (0-0.8); Eosinophils % (auto) 2.1 % (0.0-7.0); Hematocrit 38.5 % (36.0-46.0); Hemoglobin 13.2 g/dL (12.2-16.2); Lymphocytes # (auto) 2.7 10 ^3/uL (0.4-5.4); Lymphocytes % (auto) 48.2 % (10.0-50.0); Mean Corpuscular Hemoglobin 31.9 pg (28.0-32.0); Mean Corpuscular Hgb Conc. 34.3 g/dL (32.0-36.0); Mean Corpuscular Volume 92.9 fL (80.0-100.0); Monocytes # (auto) 0.4 10 ^3/uL (0-1.3); Monocytes % (auto) 6.5 % (0.0-12.0); Neutrophils # (auto) 2.4 10 ^3/uL (1.6-8.6); Nucleated Red Blood Cells % 0.2 %; Red Blood Cells 4.14 10^6/uL (4.0-5.20); White Blood Cell 5.6 10^3/uL (4.4-10.8)
[2020-08-22] MEDS ORDERED: FAMOTIDINE 20 MG TAB PO ONE (15:45)
[2020-08-22] MEDS ORDERED: ALUM & MAG HYDROX-SIMETH LIQ(MAALOX) 30 ML PO ONE (15:45)
[2020-08-22] MEDS ORDERED: SODIUM CHLORIDE 0.9% 1,000 ML IVB ONE (15:45)
[2020-08-22] MEDS ORDERED: DONNATAL 5ml ORAL Elix (BELLADONNA ALK-PHENOBARB) PO ONE (15:45)
[2020-08-22 15:58] LABS: Magnesium 2.3 mg/dL (1.6-2.6)
[2020-08-22 16:00] LABS: Albumin 3.3 g/dL (3.4-5.0); Calcium 7.9 mg/dL (8.5-10.1); Potassium 4.1 mmol/L (3.5-5.1)
[2020-08-22 16:05] LABS: BUN/Creatinine Ratio 25.5; Bilirubin, Total 0.1 mg/dL (0.2-1.0); Total Protein 7.1 g/dL (6.4-8.2)
[2020-08-22 16:26] LABS: INR 0.94 (0.9-1.15); Partial Thromboplastin Time 21.7 sec (23.0-31.2)
[2020-08-22] MEDS ORDERED: LORazepam 2MG/ML-1ML VIAL IV ONE (16:30)
[2020-08-22] MEDS ORDERED: FOLIC ACID 1 MG, MULTIPLE VITAMIN 10 ML, MAGNESIUM SULF SDV 50% 8 MEQ, THIAMINE INJ 100... INJ SCH ×5 (17:24)
[2020-08-22 19:47] LABS: Urine Bacteria NONE SEEN /hpf (None Seen); Urine Blood Negative /uL (Negative); Urine Mucus FEW (None Seen); Urine Specific Gravity 1.021 (1.001-1.035); Urine WBC 4 /hpf (0 - 5)
[2020-08-22 20:12] LABS: Amphetamine Screen, Urine NEGATIVE (NEGATIVE); Barbiturate Scree,Urine NEGATIVE (NEGATIVE); Benzodiazephine Screen, Urine NEGATIVE (NEGATIVE); Cannabinoid Screen, Urine POSITIVE (NEGATIVE); Cocaine Screen, Urine NEGATIVE (NEGATIVE); Opiate Scree,Urine NEGATIVE (NEGATIVE); Phencyclidine Screen, Urine NEGATIVE (NEGATIVE)
[2020-08-22 20:48] VITALS: BP 119/81
== END 2020-08-22 20:49 | disposition home or self-care (01) ==
LOC: EDBD → ER 14:47 → EDBD 14:47 → EDUNIT# 14:47 → ER 20:49
DX: F10.129 Alcohol abuse with intoxication, unspecified (principal); K29.20 Alcoholic gastritis without bleeding; E46 Unspecified protein-calorie malnutrition; Z68.21 Body mass index [BMI] 21.0-21.9, adult; F17.210 Nicotine dependence, cigarettes, uncomplicated; Z90.89 Acquired absence of other organs; Z79.01 Long term (current) use of anticoagulants; Z79.899 Other long term (current) drug therapy; Y90.8 Blood alcohol level of 240 mg/100 ml or more
CPT/HCPCS: 36415; 71046; 80053; 80307; 80320; 81001; 83690; 83735; 85025; 85610; 85730; 93005; 96361; 96365; 96366; 96375; 99285; J2060; J2405; J3411; J3475; J7030

== ENCOUNTER 2020-08-30 11:47 | Emergency (ER) | payer MEDICAID ==
[~2020-08-30] VITALS: Ht 160 cm; Wt 54.4 kg
[2020-08-30] MEDS ORDERED: SODIUM CHLORIDE 0.9% 1,000 ML IV ONE ×2 (12:00)
[2020-08-30 12:16] LABS: Basophils # (auto) 0 10 ^3/uL (0-0.2); Basophils % (auto) 0.4 % (0.0-2.0); Eosinophils # (auto) 0.1 10 ^3/uL (0-0.8); Eosinophils % (auto) 1.9 % (0.0-7.0); Hematocrit 40.6 % (36.0-46.0); Hemoglobin 14.1 g/dL (12.2-16.2); Lymphocytes # (auto) 2.9 10 ^3/uL (0.4-5.4); Lymphocytes % (auto) 42.1 % (10.0-50.0); Mean Corpuscular Hemoglobin 32.2 pg (28.0-32.0); Mean Corpuscular Hgb Conc. 34.8 g/dL (32.0-36.0); Mean Corpuscular Volume 92.5 fL (80.0-100.0); Monocytes # (auto) 0.6 10 ^3/uL (0-1.3); Monocytes % (auto) 8.5 % (0.0-12.0); Neutrophils # (auto) 3.3 10 ^3/uL (1.6-8.6); Neutrophils % (auto) 47.1 % (37.0-80.0); Nucleated Red Blood Cells % 0.2 %; Platelet Count (auto) 213 10^3/uL (140-450); Red Blood Cells 4.39 10^6/uL (4.0-5.20); Red Cell Distribution Width 14.7 % (11.8-14.3); White Blood Cell 6.9 10^3/uL (4.4-10.8)
[2020-08-30 12:44] LABS: Albumin 3.4 g/dL (3.4-5.0); Anion Gap 14 (5-15); Blood Urea Nitrogen 19 mg/dL (7-18); Calcium 8.7 mg/dL (8.5-10.1); Carbon Dioxide 19 mmol/L (21-32); Chloride 100 mmol/L (98-107); Glucose 110 mg/dL (74-106); Sodium 133 mmol/L (136-145)
[2020-08-30 12:52] LABS: Alanine Aminotransferase 34 U/L (13-56); Alkaline Phosphatase 104 U/L (45-117); Aspartate Aminotransferase 48 U/L (15-37); BUN/Creatinine Ratio 16.5; Bilirubin, Total 0.4 mg/dL (0.2-1.0); GFR African American 63 mL/min; GFR Non-African American 52 mL/min; Total Protein 7.2 g/dL (6.4-8.2)
[2020-08-30 13:04] LABS: Potassium 2.9 mmol/L (3.5-5.1)
[2020-08-30] MEDS ORDERED: POTASSIUM EFFERVESENT TAB 25 MEQ PO ONE (13:30)
[2020-08-30 13:44] LABS: Urine Amorphous Crystal FEW /hpf (None Seen); Urine Bacteria FEW /hpf (None Seen); Urine Blood Negative /uL (Negative); Urine Specific Gravity 1.011 (1.001-1.035); Urine WBC 2 /hpf (0 - 5)
[2020-08-30 14:07] LABS: Amphetamine Screen, Urine NEGATIVE (NEGATIVE); Barbiturate Scree,Urine NEGATIVE (NEGATIVE); Benzodiazephine Screen, Urine NEGATIVE (NEGATIVE); Cocaine Screen, Urine NEGATIVE (NEGATIVE); Opiate Scree,Urine NEGATIVE (NEGATIVE); Phencyclidine Screen, Urine NEGATIVE (NEGATIVE)
[2020-08-30 14:14] LABS: Cannabinoid Screen, Urine NEGATIVE (NEGATIVE)
[2020-08-30] MEDS ORDERED: ONDANSETRON HCL 4 MG/2 ML VIAL ONE (14:20)
[2020-08-30] MEDS ORDERED: MORPHINE SULF INJ 2 MG/ML SYRINGE 1ML ONE (14:20)
[2020-08-30] MEDS ORDERED: ONDANSETRON HCL 4 MG/2 ML VIAL IV ONE ×2 (14:30→22:30)
[2020-08-30] MEDS ORDERED: MORPHINE SULF INJ 2 MG/ML SYRINGE 1ML IV ONE (14:30)
[2020-08-30] MEDS ORDERED: MORPHINE SULFATE 4 MG/ML SYR/VIAL IV ONE (20:15)
[2020-08-30 23:20] VITALS: BP 115/80
== END 2020-08-31 00:08 | disposition short-term general hospital (02) ==
LOC: ER 11:47 → EDBD 11:47 → EDUNIT# 11:47 → ER 08-31 00:08
DX: S32.029A Unspecified fracture of second lumbar vertebra, initial encounter for closed fracture (principal); S00.512A Abrasion of oral cavity, initial encounter; I95.9 Hypotension, unspecified; E87.6 Hypokalemia; J44.9 Chronic obstructive pulmonary disease, unspecified; F17.210 Nicotine dependence, cigarettes, uncomplicated; R51.9 Headache, unspecified; F10.10 Alcohol abuse, uncomplicated; Z98.51 Tubal ligation status; W01.0XXA Fall on same level from slipping, tripping and stumbling without subsequent striking against object, initial encounter; Y93.89 Activity, other specified; Y92.89 Other specified places as the place of occurrence of the external cause; Y99.8 Other external cause status
CPT/HCPCS: 36415; 70450; 70486; 72131; 80053; 80307; 80320; 81001; 84484; 85025; 96361; 96374; 96375; 96376; 99285; J2270; J2405; J7030

== ENCOUNTER 2020-09-15 22:07 | Emergency (ER) | payer MEDICAID ==
[~2020-09-15] VITALS: Ht 154.9 cm; Wt 56.7 kg
[2020-09-15 22:11] VITALS: BP 119/87
[2020-09-15 22:49] LABS: Urine Bacteria NONE SEEN /hpf (None Seen); Urine Blood Negative /uL (Negative); Urine Hyaline Cast FEW /lpf (0 - 2); Urine Specific Gravity 1.016 (1.001-1.035); Urine WBC 1 /hpf (0 - 5)
[2020-09-15 23:28] LABS: Amphetamine Screen, Urine NEGATIVE (NEGATIVE); Barbiturate Scree,Urine NEGATIVE (NEGATIVE); Benzodiazephine Screen, Urine POSITIVE (NEGATIVE); Cannabinoid Screen, Urine NEGATIVE (NEGATIVE); Cocaine Screen, Urine NEGATIVE (NEGATIVE); Opiate Scree,Urine NEGATIVE (NEGATIVE); Phencyclidine Screen, Urine NEGATIVE (NEGATIVE)
== END 2020-09-15 22:11 | disposition left against medical advice (07) ==
LOC: EDBD 22:07 → EDUNIT# 22:07 → ER 22:10 → EDBD 22:10 → ER 22:11
DX: R10.31 Right lower quadrant pain (principal); Z53.21 Procedure and treatment not carried out due to patient leaving prior to being seen by health care provider
CPT/HCPCS: 80307; 81001

== ENCOUNTER 2020-09-21 17:43 | Emergency (ER) | payer MEDICAID ==
[~2020-09-21] VITALS: Ht 154.9 cm; Wt 54.4 kg
[2020-09-21 17:49] VITALS: BP 146/84
== END 2020-09-21 18:21 | disposition left against medical advice (07) ==
LOC: ER 17:43 → EDBD 17:43 → MERGE 17:43 → ER 18:21
DX: R10.31 Right lower quadrant pain (principal); R11.2 Nausea with vomiting, unspecified; Z53.21 Procedure and treatment not carried out due to patient leaving prior to being seen by health care provider

== ENCOUNTER 2020-09-29 19:17 | Emergency (ER) | payer MEDICAID ==
[~2020-09-29] VITALS: Ht 152.4 cm; Wt 59.0 kg
== END 2020-09-29 21:51 | disposition left against medical advice (07) ==
LOC: EDBD 19:17 → ER 19:18 → MERGE 19:18 → ER 21:51
DX: R10.9 Unspecified abdominal pain (principal); Z53.21 Procedure and treatment not carried out due to patient leaving prior to being seen by health care provider
CPT/HCPCS: 71045

== ENCOUNTER 2022-07-15 14:10 | Emergency (ER) | payer MEDICAID ==
[~2022-07-15] VITALS: Ht 154.9 cm; Wt 53.0 kg
[~2022-07-15 14:10] MED LIST changes: +ACET1CAP14 PO; +CIPR-173 PO; +CYCL-837 PO; +HYDR-4902 PO; +TRAM-297 PO
[2022-07-15] MEDS ORDERED: ONDANSETRON HCL 4 MG/2 ML VIAL IV ONE (14:45)
[2022-07-15] MEDS ORDERED: LACTATED RINGER'S 1,000 ML IV ONE (14:45)
[2022-07-15] MEDS ORDERED: MAGNESIUM SULFATE 1GM/100ML 100 ML IV ONE (14:45)
[2022-07-15] MEDS ORDERED: TAMSULOSIN HYDROCHLORIDE 0.4 MG CAP PO ONE (14:45)
[2022-07-15] MEDS ORDERED: KETOROLAC TROMETH 30 MG/ML 1ML VIAL IV ONE (14:45)
[2022-07-15 14:55] LABS: Basophils # (auto) 0.2 10 ^3/uL (0-0.2); Basophils % (auto) 3.1 % (0.0-2.0); Eosinophils # (auto) 0.4 10 ^3/uL (0-0.8); Hematocrit 36.5 % (36.0-46.0); Hemoglobin 12.3 g/dL (12.2-16.2); Lymphocytes # (auto) 2.2 10 ^3/uL (0.4-5.4); Lymphocytes % (auto) 33.7 % (10.0-50.0); Mean Corpuscular Hemoglobin 29.7 pg (28.0-32.0); Mean Corpuscular Hgb Conc. 33.7 g/dL (32.0-36.0); Mean Corpuscular Volume 88.3 fL (80.0-100.0); Monocytes # (auto) 0.6 10 ^3/uL (0-1.3); Monocytes % (auto) 8.9 % (0.0-12.0); Neutrophils # (auto) 3.2 10 ^3/uL (1.6-8.6); Neutrophils % (auto) 48.3 % (37.0-80.0); Nucleated Red Blood Cells % 0.1 %; Red Blood Cells 4.14 10^6/uL (4.0-5.20); Red Cell Distribution Width 15.3 % (11.8-14.3); White Blood Cell 6.6 10^3/uL (4.4-10.8)
[2022-07-15 15:10] LABS: Albumin 3.2 g/dL (3.4-5.0); BUN/Creatinine Ratio 12.9 (10.0-20.0); Calcium 9.1 mg/dL (8.5-10.1); Potassium 3.7 mmol/L (3.5-5.1)
[2022-07-15 15:14] LABS: Bilirubin, Total 0.2 mg/dL (0.2-1.0); Total Protein 6.9 g/dL (6.4-8.2)
[2022-07-15] MEDS ORDERED: CEPH-322 PO (17:17)
[2022-07-15 20:10] VITALS: BP 118/52
== END 2022-07-15 20:13 | disposition home or self-care (01) ==
LOC: ER 14:10 → MERGE 14:10 → EDBD 14:10 → ER 20:13
DX: R30.0 Dysuria (principal); F17.210 Nicotine dependence, cigarettes, uncomplicated; F15.10 Other stimulant abuse, uncomplicated; I10 Essential (primary) hypertension; K21.9 Gastro-esophageal reflux disease without esophagitis; Z59.00 Homelessness unspecified
CPT/HCPCS: 36415; 74176; 80053; 85025; 96361; 96374; 96375; 99285; J1885; J2405

== ENCOUNTER 2022-08-22 12:21 | Emergency (ER) | payer MEDICAID ==
[~2022-08-22] VITALS: Ht 152.4 cm; Wt 52.3 kg
[~2022-08-22 12:21] MED LIST changes: +CEPH-322 PO
[2022-08-22 14:11] VITALS: BP 134/94
[2022-08-22] MEDS ORDERED: KETOROLAC TROMETH 60MG/2ML VIAL IM ONE (14:30)
[2022-08-22] MEDS ORDERED: HYDR-4902 PO (15:35)
== END 2022-08-22 15:41 | disposition home or self-care (01) ==
LOC: EDBD 12:21 → ER 12:21
DX: S22.069A Unspecified fracture of T7-T8 vertebra, initial encounter for closed fracture (principal); S22.089A Unspecified fracture of T11-T12 vertebra, initial encounter for closed fracture; J44.9 Chronic obstructive pulmonary disease, unspecified; Z98.51 Tubal ligation status; X58.XXXA Exposure to other specified factors, initial encounter; Y93.89 Activity, other specified; Y92.89 Other specified places as the place of occurrence of the external cause; Y99.8 Other external cause status
CPT/HCPCS: 72070; 96372; 99283; J1885

== ENCOUNTER 2022-08-22 17:45 | Emergency (ER) | payer MEDICAID | END 2022-08-22 18:06 | disposition left against medical advice (07) | LOC: ER 17:45 → EDBD 17:45 → ER 18:06 | DX: M54.9 Dorsalgia, unspecified (principal); Z53.21 Procedure and treatment not carried out due to patient leaving prior to being seen by health care provider ==

== ENCOUNTER 2022-11-25 17:45 | Emergency (ER) | payer MEDICAID ==
[~2022-11-25] VITALS: Ht 154.9 cm; Wt 52.2 kg
[~2022-11-25 17:45] MED LIST changes: -CEPH-322 PO; +CEPH250C PO
[2022-11-25 17:52] VITALS: BP 122/89; PULSE 75; RESP 18; O2SAT 98
== END 2022-11-25 19:39 | disposition left against medical advice (07) ==
LOC: ER 17:45 → EDBD 17:45 → ER 19:39
DX: T67.5XXA Heat exhaustion, unspecified, initial encounter (principal); X58.XXXA Exposure to other specified factors, initial encounter; Y93.9 Activity, unspecified; Y92.89 Other specified places as the place of occurrence of the external cause; Y99.8 Other external cause status

== ENCOUNTER 2023-01-15 19:27 | Emergency (ER) | payer MEDICAID ==
[~2023-01-15] VITALS: Ht 149.9 cm; Wt 54.7 kg
[2023-01-15 19:42] VITALS: BP 123/98; PULSE 100; RESP 20; O2SAT 94
[2023-01-15] MEDS ORDERED: ACE3T PO (20:28)
[2023-01-15] MEDS ORDERED: AUG875T PO (20:28)
[2023-01-15] MEDS ORDERED: BACIOIN15 TOP (20:28)
[2023-01-15] MEDS ORDERED: KETOROLAC TROMETH 60MG/2ML VIAL IM ONE (20:30)
[2023-01-15] MEDS ORDERED: HYDROcodone-ACET 5/325MG TAB PO ONE (20:30)
[2023-01-15] MEDS ORDERED: AMOXICILLIN/CLAVUL 875 MG TAB PO ONE (20:30)
[2023-01-15] MEDS ORDERED: NEOMYCIN-BACITRACIN-POLYM UNITDOSE PKG TOP OINT TOP ONE (20:30)
== END 2023-01-16 00:42 | disposition home or self-care (01) ==
LOC: ER 19:29
DX: S41.132A Puncture wound without foreign body of left upper arm, initial encounter (principal); S41.112A Laceration without foreign body of left upper arm, initial encounter; J44.9 Chronic obstructive pulmonary disease, unspecified; I50.9 Heart failure, unspecified; F17.210 Nicotine dependence, cigarettes, uncomplicated; F10.90 Alcohol use, unspecified, uncomplicated; Z98.890 Other specified postprocedural states; Z79.1 Long term (current) use of non-steroidal anti-inflammatories (NSAID); Z79.899 Other long term (current) drug therapy; W54.0XXA Bitten by dog, initial encounter; Y93.89 Activity, other specified; Y92.89 Other specified places as the place of occurrence of the external cause; Y99.8 Other external cause status; Y90.0 Blood alcohol level of less than 20 mg/100 ml

== ENCOUNTER 2023-03-10 10:02 | Emergency (ER) | payer MEDICAID ==
[~2023-03-10] VITALS: Ht 162.6 cm; Wt 59.0 kg
[~2023-03-10 10:02] MED LIST changes: +ACE3T PO; +AUG875T PO; +BACIOIN15 TOP
[2023-03-10] MEDS ORDERED: SODIUM CHLORIDE 0.9% 1,000 ML IVB ONE (10:30)
[2023-03-10 10:50] VITALS: RESP 14
[2023-03-10] MEDS ORDERED: LORazepam 2MG/ML-1ML VIAL IV ONE (11:00)
[2023-03-10 12:03] LABS: Basophils # (auto) 0.1 10 ^3/uL (0-0.2); Basophils % (auto) 1.2 % (0.0-2.0); Eosinophils # (auto) 0.3 10 ^3/uL (0-0.8); Eosinophils % (auto) 3.5 % (0.0-7.0); Hematocrit 33.1 % (36.0-46.0); Hemoglobin 10.6 g/dL (12.2-16.2); Lymphocytes # (auto) 2.4 10 ^3/uL (0.4-5.4); Lymphocytes % (auto) 30.4 % (10.0-50.0); Mean Corpuscular Hemoglobin 29.6 pg (28.0-32.0); Mean Corpuscular Volume 92.7 fL (80.0-100.0); Monocytes # (auto) 0.7 10 ^3/uL (0-1.3); Monocytes % (auto) 9.1 % (0.0-12.0); Neutrophils # (auto) 4.4 10 ^3/uL (1.6-8.6); Neutrophils % (auto) 55.8 % (37.0-80.0); Nucleated Red Blood Cells % 0.1 %; Red Blood Cells 3.57 10^6/uL (4.0-5.20); Red Cell Distribution Width 17.1 % (11.8-14.3); White Blood Cell 7.9 10^3/uL (4.4-10.8)
[2023-03-10 12:19] LABS: Acetaminophen < 2.0 UG/ML (10.0-20.0)
[2023-03-10 12:20] LABS: Salicylate < 3.0 mg/dL (2.8-20.0)
[2023-03-10 12:21] LABS: Alanine Aminotransferase 12 U/L (7-40); Albumin 3.4 g/dL (3.2-4.8); Alkaline Phosphatase 71 U/L (46-116); Anion Gap 5 (5-15); Aspartate Aminotransferase 21 U/L (13-40); BUN/Creatinine Ratio 12.3 (10.0-20.0); Blood Urea Nitrogen 10 mg/dL (9-23); Calcium 7.4 mg/dL (8.7-10.4); Carbon Dioxide 23 mmol/L (20-30); Chloride 116 mmol/L (98-107); Glucose 83 mg/dL (74-106); Lipase 38 U/L (12-53); Magnesium 1.8 mg/dL (1.6-2.6); Potassium 3.9 mmol/L (3.5-5.1); Sodium 144 mmol/L (136-145)
[2023-03-10 12:22] LABS: Bilirubin, Total < 0.2 mg/dL (0.2-1.0); Total Protein 5.4 g/dL (5.7-8.2)
[2023-03-10 12:32] LABS: Blood Alcohol 438.7 mg/dL (<10)
[2023-03-10 16:08] LABS: Urine Bacteria NONE SEEN /hpf (None Seen); Urine Blood Negative /uL (Negative); Urine Clarity Clear (Clear); Urine Color Colorless (Yellow); Urine Protein, UAD Negative (Negative); Urine Specific Gravity 1.009 (1.001-1.035); Urine Urobilinogen Normal (Negative); Urine WBC 27 /hpf (0 - 5)
[2023-03-10 16:19] LABS: Amphetamine Screen, Urine Neg (NEGATIVE); Barbiturate Scree,Urine Neg (NEGATIVE); Benzodiazephine Screen, Urine Neg (NEGATIVE)
[2023-03-10 16:20] LABS: Cannabinoid Screen, Urine Pos (NEGATIVE); Cocaine Screen, Urine Neg (NEGATIVE); Opiate Scree,Urine Neg (NEGATIVE); Phencyclidine Screen, Urine Neg (NEGATIVE)
[2023-03-10 19:30] VITALS: PULSE 116; RESP 18; O2SAT 93
[2023-03-10] MEDS ORDERED: ONDANSETRON HCL 4 MG/2 ML VIAL IV ONE (21:45)
[2023-03-10] MEDS ORDERED: MORPHINE SULFATE 4 MG/ML SYR/VIAL IV ONE (21:45)
[2023-03-11 08:00] VITALS: PULSE 109; RESP 22; TEMP 98.6; O2SAT 93
[2023-03-11 09:59] VITALS: BP 112/73; PULSE 88; RESP 13; O2SAT 98
[2023-03-11] MEDS ORDERED: NITR-87 PO (10:33)
[2023-03-11] MEDS ORDERED: cefTRIAXone 1GM/50ML D5W 50 ML IV ONE (10:45)
== END 2023-03-11 10:33 | disposition home or self-care (01) ==
LOC: ER 10:02 → EDUNIT# 10:02 → ER 03-11 10:33
DX: F10.129 Alcohol abuse with intoxication, unspecified (principal); J44.9 Chronic obstructive pulmonary disease, unspecified; I50.9 Heart failure, unspecified; F17.210 Nicotine dependence, cigarettes, uncomplicated; Z90.89 Acquired absence of other organs; Z79.2 Long term (current) use of antibiotics; Z79.01 Long term (current) use of anticoagulants; Z79.899 Other long term (current) drug therapy; Y90.8 Blood alcohol level of 240 mg/100 ml or more
CPT/HCPCS: 36415; 70450; 80053; 80307; 80320; 80329; 81001; 83690; 83735; 85025; 96374; 96375; 99285; J2060; J2270; J2405; J7030